=== PATIENT | female | born 1985 | race American Indian/Alaskan Native ===

== ENCOUNTER 2017-12-03 13:20 | Emergency (ER) | payer MEDICAID ==
[2017-12-03 13:21] VITALS: BMI 21.2
[2017-12-03 13:26] VITALS: BP 114/85; PULSE 81; RESP 16; TEMP 98; O2SAT 100
--- NOTE | 2017-12-03 14:08 | ED PDOC ---
HPI: Abdomen Time Seen by Provider: 12/03/17 13:28 Chief Complaint (Nursing): Abdominal Pain Chief Complaint (Provider): Abdominal Pain History Per: Family Additional Complaint(s): 32 yo female, no PMH, , presents to ED at 7 w 1 day with complaintso f vaginal bleeding x 2 hours now, mild associated cramping as well. Past Medical History Reviewed: Nursing Documentation, Vital Signs Vital Signs: Last Vital Signs Temp 98.0 F 12/03/17 13:25 Pulse 81 12/03/17 13:25 Resp 16 12/03/17 13:25 BP 114/85 12/03/17 13:25 Pulse Ox 100 12/03/17 18:01 - Medical History PMH: No Chronic Diseases - Surgical History Surgical History: No Surg Hx - Family History Family History: States: No Known Family Hx - Living Arrangements Living Arrangements: With Family - Social History Current smoker - smoking cessation education provided: No Alcohol: None Drugs: Denies - Immunization History Hx Influenza Vaccination: No Hx Pneumococcal Vaccination: No - Home Medications Home Medications: Ambulatory Orders Medication Instructions Recorded Docusate Sodium/Sennosides A 1 tab PO HS PRN #20 tab 01/20/16 [Senokot S 50 MG-8.6 MG] Ferrous Sulfate [Feosol] 325 mg PO TID #90 tab 01/20/16 Ibuprofen 600 mg PO Q6 PRN #25 tab 01/20/16 Multivit/Folic Acid/I 1 tab PO DAILY #0 tab 01/20/16 [] Nitrofurantoin Macrocrystals 100 mg PO BID #10 cap 12/03/17 [Macrobid] - Allergies Allergies/Adverse Reactions: Allergies Allergy/AdvReac Type Severity Reaction Status Date / Time Penicillins Allergy Intermediate RASH Verified 01/17/16 16:24 Review of Systems ROS Statement: Except As Marked, All Systems Reviewed And Found Negative Genitourinary Female: Positive for: Vaginal Bleeding Physical Exam - Reviewed Nursing Documentation Reviewed: Yes Vital Signs Reviewed: Yes - Physical Exam Appears: Positive for: Well, Non-toxic, No Acute Distress Head Exam: Positive for: ATRAUMATIC, NORMAL INSPECTION, NORMOCEPHALIC Skin: Positive for: Normal Color, Warm, DRY Eye Exam: Positive for: EOMI, Normal appearance, PERRL ENT: Positive for: Normal ENT Inspection Neck: Positive for: Normal, Painless ROM Cardiovascular/Chest: Positive for: Regular Rate, Rhythm Respiratory: Positive for: CNT, Normal Breath Sounds Gastrointestinal/Abdominal: Positive for: Normal Exam, Bowel Sounds, Soft. Negative for: Tenderness, Distended, Guarding Pelvic Exam: Positive for: External Exam Normal. Negative for: Active Bleeding Back: Positive for: Normal Inspection Extremity: Positive for: Normal ROM Neurologic/Psych: Positive for: Alert, Oriented - Laboratory Results Result Diagrams: 12/03/17 15:35 - ECG O2 Sat by Pulse Oximetry: 100 Medical Decision Making Medical Decision Making: Diagnostics ordered Pt declined analgesics at this time Blood type B+ Beta 1142 UTI on UA, given RX for Macrobid IMPRESSION: No intrauterine gestational sac or pole identified. There is a mildly thickened endometrial complex with some nonspecific internal hypoechoic fluid or debris. A portion of this may extend towards the endocervical canal. Findings may reflect spontaneous . Further correlation with the patient' s laboratory values is suggested. There are bilateral hypoechoic ovarian cysts noted. Ectopic cannot fully be excluded at the present time and short interval follow-up of the patient's laboratory values and ultrasound would be suggested. Importance of follow up for repeat beta discussed at length, as well as signs and symptoms of ectopic. Importance of returning to ED stressed if symptoms worsen. Disposition - Clinical Impression Clinical Impression: Threatened in first trimester, UTI (urinary tract infection) - Patient ED Disposition Is Patient to be Admitted: No - Disposition Disposition: Routine/Home Disposition Time: 18:03 Condition: STABLE Additional Instructions: Return in 48 hours for repeat Beta! Sooner if abdominal pain worsens at anytime Prescriptions: Nitrofurantoin Macrocrystals [Macrobid] 100 mg PO BID #10 cap Instructions: Threatened Miscarriage (ED), Urinary Tract Infection in Women (ED ) Forms: [employer] (Swedish)
[2017-12-03 14:59] LABS: SQUAMOUS EPITHIAL 9 /hpf (0-5); URINE BACTERIA OCC (<OCC); URINE BILIRUBIN NEGATIVE (NEGATIVE); URINE BLOOD LARGE (NEGATIVE); URINE CLARITY TURBID (Clear); URINE COLOR YELLOW (YELLOW); URINE GLUCOSE (UA) NEG (Normal); URINE LEUKOCYTE ESTERASE SMALL Leu/uL (Negative); URINE NITRATE NEGATIVE (NEGATIVE); URINE PROTEIN 100 mg/dL (NEGATIVE); URINE UROBILINOGEN 0.2-1.0 mg/dL (0.2-1.0); WBC CLUMPS FEW /hpf
--- NOTE | 2017-12-03 15:08 | US ---
HISTORY: vaginal bleeding, 7 w COMPARISON: None available. TECHNIQUE: Real-time transabdominal and transvaginal ultrasound examination of the pelvis was performed. FINDINGS: UTERUS: Measures 7.4 x 3.6 x 4.7 cm. Uterus has homogeneous echogenicity without focal fibroid. No cervical masses are seen. No fibroid or other mass lesion seen. ENDOMETRIUM: On the transvaginal images the endometrial complex is slightly thickened with some heterogeneous echogenicity in the canal but no appreciable intrauterine gestational sac. The entire endometrium 11 millimeters.. This heterogeneity may extend towards the cervical canal region. CERVIX: See above RIGHT OVARY: Measures 2.5 x 1.9 x 3.5 cm. There is a 12 millimeter x 10 millimeter x 9 millimeter hypoechoic cyst more than likely para ovarian in position. There is also a 14 millimeter x 10 millimeter x 10 millimeter right ovarian cyst and a larger 14 millimeter x 18 millimeter x 14 millimeter hypoechoic right ovarian cyst. Normal Doppler flow is seen in the right ovary. LEFT OVARY: Measures 3.8 x 2.7 x 2.6 cm. There is a 2.2 centimeter x 1.9 centimeter x 1.7 centimeter hypoechoic cyst with small amount of peripheral soft tissue. No intrauterine gestation is seen this region. Normal Doppler flow was noted in the left ovary. FREE FLUID: Small amount of free fluid is seen in the cul-de-sac. OTHER FINDINGS: None. IMPRESSION: No intrauterine gestational sac or pole identified. There is a mildly thickened endometrial complex with some nonspecific internal hypoechoic fluid or debris. A portion of this may extend towards the endocervical canal. Findings may reflect spontaneous . Further correlation with the patient's laboratory values is suggested. There are bilateral hypoechoic ovarian cysts noted. Ectopic cannot fully be excluded at the present time and short interval follow-up of the patient's laboratory values and ultrasound would be suggested.
[2017-12-03 15:56] LABS: BASO # 0.1 K/uL (0.0-0.2); BASO % 0.7 % (0.0-2.0); EOS # 0.1 K/uL (0.0-0.7); EOS % 1.8 % (0.0-4.0); LYMPH # 1.6 K/uL (1.0-4.3); LYMPH % 21.1 % (20.0-40.0); MEAN CELL VOLUME 92.2 fl (81.0-99.0); MEAN CORPUSCULAR HEMOGLOBIN 30.3 pg (27.0-31.0); MEAN CORPUSCULAR HGB CONC 32.9 g/dL (33.0-37.0); MEAN PLATELET VOLUME 8.2 fl (7.2-11.7); MONO # 0.3 K/uL (0.0-0.8); MONO % 4.3 % (0.0-10.0); NEUT # 5.4 K/uL (1.8-7.0); NEUT % 72.1 % (50.0-75.0); RBC 3.95 Mil/uL (3.80-5.20); RED CELL DISTRIBUTION WIDTH 12.7 % (11.5-14.5); WHITE BLOOD COUNT 7.5 K/uL (4.8-10.8)
== END 2017-12-03 18:30 | disposition home or self-care (01) ==
LOC: H.ER 13:20
DX: O20.0 Threatened abortion (principal); O23.40 Unspecified infection of urinary tract in pregnancy, unspecified trimester; N83.201 Unspecified ovarian cyst, right side; N83.202 Unspecified ovarian cyst, left side; Z88.0 Allergy status to penicillin

== ENCOUNTER 2017-12-05 12:56 | Emergency (ER) | payer MEDICAID ==
[2017-12-05 12:56] VITALS: BMI 21.2
[2017-12-05 13:29] VITALS: BP 114/71; PULSE 80; RESP 16; TEMP 97.6; O2SAT 100
--- NOTE | 2017-12-05 14:39 | ED PDOC ---
HPI: Female Pain Time Seen by Provider: 12/05/17 14:32 Chief Complaint (Nursing): Abnormal Labs History Per: Patient (Vaginal spotting assoc with low back pain. Bleeding unchanged since ED visit 2 days ago. Here for repeat Beta HCG) Current Symptoms Are (Timing): Still Present Severity: Mild Quality Of Discomfort: Cramping Abnormal Vaginal Bleeding: Yes Past Medical History Vital Signs: Last Vital Signs Temp 97.6 F 12/05/17 13:24 Pulse 80 12/05/17 13:24 Resp 16 12/05/17 13:24 BP 114/71 12/05/17 13:24 Pulse Ox 100 12/05/17 13:24 - Medical History PMH: No Chronic Diseases - Family History Family History: States: Unknown Family Hx - Immunization History Hx Influenza Vaccination: No Hx Pneumococcal Vaccination: No - Home Medications Home Medications: Ambulatory Orders Medication Instructions Recorded Docusate Sodium/Sennosides A 1 tab PO HS PRN #20 tab 01/20/16 [Senokot S 50 MG-8.6 MG] Ferrous Sulfate [Feosol] 325 mg PO TID #90 tab 01/20/16 Ibuprofen 600 mg PO Q6 PRN #25 tab 01/20/16 Multivit/Folic Acid/I 1 tab PO DAILY #0 tab 01/20/16 [] Nitrofurantoin Macrocrystals 100 mg PO BID #10 cap 12/03/17 [Macrobid] - Allergies Allergies/Adverse Reactions: Allergies Allergy/AdvReac Type Severity Reaction Status Date / Time Penicillins Allergy Intermediate RASH Verified 01/17/16 16:24 Review of Systems Genitourinary Female: Positive for: Vaginal Bleeding Musculoskeletal: Positive for: Back Pain Physical Exam - Physical Exam Appears: Positive for: Non-toxic, No Acute Distress Skin: Positive for: Normal Color, Warm, Dry Gastrointestinal/Abdominal: Positive for: Bowel Sounds, Soft. Negative for: Tenderness - ECG O2 Sat by Pulse Oximetry: 100 Disposition - Clinical Impression Clinical Impression: Miscarriage - Patient ED Disposition Is Patient to be Admitted: No Counseled Patient/Family Regarding: Studies Performed, Diagnosis, Need For Followup, Rx Given - Disposition Disposition: Routine/Home Disposition Time: 16:07 Condition: FAIR Instructions: Spontaneous Miscarriage (ED) Forms: [employer] (Arabic)
== END 2017-12-05 16:18 | disposition left against medical advice (07) ==
LOC: H.ER 12:56
DX: O03.9 Complete or unspecified spontaneous abortion without complication (principal); Z88.0 Allergy status to penicillin

== ENCOUNTER 2017-12-23 08:03 | Emergency (ER) | payer MEDICAID ==
[2017-12-23 08:10] VITALS: RESP 18; BMI 16.0
--- NOTE | 2017-12-23 09:20 | ED PDOC ---
HPI: CCC, URI, Sore Throat Time Seen by Provider: 12/23/17 08:47 Chief Complaint (Nursing): Flu-like Symptoms Chief Complaint (Provider): Flu-like Symptoms History Per: Patient History/Exam Limitations: no limitations Onset/Duration Of Symptoms: Days (x2) Current Symptoms Are (Timing): Still Present Additional Complaint(s): 32 year old female who presents to the emergency department with a complaint of worsening flu-like symptoms including headache, cough, fever and generalized bodyaches ongoing since yesterday. Denied any difficulty urinating, bloody urine , vaginal bleeding or recent flu vaccination. Patient reported second miscarriage on 12/03/17. PMD: none provided Past Medical History Reviewed: Historical Data, Nursing Documentation, Vital Signs Vital Signs: Last Vital Signs Temp 99.8 F H 12/23/17 08:09 Pulse 103 H 12/23/17 08:09 Resp 18 12/23/17 08:09 BP 112/82 12/23/17 08:09 Pulse Ox 100 12/23/17 10:04 - Medical History PMH: No Chronic Diseases - Surgical History Surgical History: No Surg Hx - Family History Family History: States: Unknown Family Hx - Social History Current smoker - smoking cessation education provided: No Alcohol: None Drugs: Denies - Immunization History Hx Influenza Vaccination: No Hx Pneumococcal Vaccination: No - Home Medications Home Medications: Ambulatory Orders Medication Instructions Recorded Docusate Sodium/Sennosides A 1 tab PO HS PRN #20 tab 01/20/16 [Senokot S 50 MG-8.6 MG] Ferrous Sulfate [Feosol] 325 mg PO TID #90 tab 01/20/16 Ibuprofen 600 mg PO Q6 PRN #25 tab 01/20/16 Multivit/Folic Acid/I 1 tab PO DAILY #0 tab 01/20/16 [] Nitrofurantoin Macrocrystals 100 mg PO BID #10 cap 12/03/17 [Macrobid] Oseltamivir Phosphate [Tamiflu] 75 mg PO BID #10 capsule 12/23/17 - Allergies Allergies/Adverse Reactions: Allergies Allergy/AdvReac Type Severity Reaction Status Date / Time Penicillins Allergy Intermediate RASH Verified 12/23/17 08:49 Review of Systems ROS Statement: Except As Marked, All Systems Reviewed And Found Negative Constitutional: Positive for: Fever, Other (bodyaches) Respiratory: Positive for: Cough Neurological: Positive for: Headache Physical Exam - Reviewed Nursing Documentation Reviewed: Yes Vital Signs Reviewed: Yes - Physical Exam Appears: Positive for: Well, Non-toxic, No Acute Distress Head Exam: Positive for: ATRAUMATIC, NORMAL INSPECTION, NORMOCEPHALIC Skin: Positive for: Normal Color. Negative for: Rash Eye Exam: Positive for: Normal appearance, EOMI, PERRL, Other (photophobic). Negative for: Nystagmus Neck: Positive for: Normal, Painless ROM, Supple. Negative for: Decreased ROM Cardiovascular/Chest: Positive for: Regular Rate, Rhythm, Chest Non Tender Respiratory: Positive for: Normal Breath Sounds. Negative for: Decreased Breath Sounds, Rales, Rhonchi, Wheezing, Respiratory Distress Gastrointestinal/Abdominal: Positive for: Normal Exam, Soft. Negative for: Tenderness Neurologic/Psych: Positive for: Alert (x3), Oriented - ECG O2 Sat by Pulse Oximetry: 100 (RA) Pulse Ox Interpretation: Normal Medical Decision Making Medical Decision Making: Initial Impression: Flu-like symptoms Initial Plan: * Tylenol 650mg PO * Influenza A B ____ Time: 0930 --Rapid flu: positive for influenza B. Scribe Attestation: Documented by Gayle Rm, acting as a scribe for Michelle Stahl MD. Provider Scribe Attestation: All medical record entries made by the Scribe were at my direction and personally dictated by me. I have reviewed the chart and agree that the record accurately reflects my personal performance of the history, physical exam, medical decision making, and the department course for this patient. I have also personally directed, reviewed, and agree with the discharge instructions and disposition. Disposition - Clinical Impression Clinical Impression: Influenza - Patient ED Disposition Is Patient to be Admitted: No Doctor Will See Patient In The: Office Counseled Patient/Family Regarding: Diagnosis, Need For Followup, Rx Given - Disposition Referrals: Elena Guzman MD [Staff Provider] - [place] [Outside] [facility] [Outside] Disposition: Routine/Home Disposition Time: 09:50 Condition: STABLE Prescriptions: Oseltamivir Phosphate [Tamiflu] 75 mg PO BID #10 capsule Instructions: Influenza (ED) Forms: [employer] (Botswanan) - POA Present On Arrival: None
[2017-12-23 10:30] VITALS: BP 128/78; PULSE 89; TEMP 98.7; O2SAT 98
== END 2017-12-23 10:29 | disposition home or self-care (01) ==
LOC: H.ER 08:03
DX: J10.1 Influenza due to other identified influenza virus with other respiratory manifestations (principal); Z88.0 Allergy status to penicillin